=== PATIENT | male | born 1975 | race Two or more races ===

== ENCOUNTER 2023-06-19 13:07 | Inpatient (IN) | payer MEDICARE, OTHER ==
[~2023-06-19] VITALS: Ht 182.9 cm; Wt 93.2 kg
[2023-06-19] MEDS ORDERED: SPIR-37 PO (14:30)
[2023-06-19] MEDS ORDERED: EMPA25TA3 PO (14:30)
[2023-06-19] MEDS ORDERED: GABA-1181 PO (14:30)
[2023-06-19] MEDS ORDERED: NORT25 PO (14:30)
[2023-06-19] MEDS ORDERED: ALLO-97 PO (14:30)
[2023-06-19] MEDS ORDERED: COLC0.6C PO (14:30)
[2023-06-19] MEDS ORDERED: ASPI-1450 PO (14:30)
[2023-06-19] MEDS ORDERED: ALLO-45 PO (14:30)
[2023-06-19] MEDS ORDERED: GABA-1216 PO (14:30)
[2023-06-19] MEDS ORDERED: ICOS1CAP PO (14:30)
[2023-06-19] MEDS ORDERED: POTA-92 PO (14:40)
[2023-06-19] MEDS ORDERED: DULO-113 PO (14:40)
[2023-06-19] MEDS ORDERED: FURO80 PO (14:40)
[2023-06-19] MEDS ORDERED: ATOR40TA28 PO (14:40)
[2023-06-19] MEDS ORDERED: LEVO75 PO (14:40)
[2023-06-19] MEDS ORDERED: TIMO5DRO21 OU (14:40)
[2023-06-19] MEDS ORDERED: METF-1211 PO (14:40)
[2023-06-19 14:47] LABS: COVID AG,FIA SOURCE NASAL SWAB
[2023-06-19 15:22] LABS: SARS-COV2 (COVID) ANTIGEN,FIA Negative (Negative)
[2023-06-19] MEDS ORDERED: INSULIN REGULAR, HUMAN 100 UNITS/ML SQ ONE (16:30)
[2023-06-19] MEDS ORDERED: HydrOXYzine PAMOATE 50 MG CAPSULE PO ONE (16:30)
[2023-06-19] MEDS ORDERED: CARV25TA32 PO (16:37)
[2023-06-19] MEDS ORDERED: SACU1TAB PO (16:37)
[2023-06-19] MEDS ORDERED: ALLO300T2 PO (16:37)
[2023-06-19] MEDS ORDERED: LEVO150 PO (16:37)
[2023-06-19] MEDS ORDERED: FURO80TA3 PO (16:37)
[2023-06-19] MEDS ORDERED: DULA4.5P SQ (16:37)
[2023-06-19 16:54] LABS: BASOPHILS % (AUTO) 0.6 % (0.0-2.0); EOSINOPHILS % (AUTO) 0.9 % (1.0-6.0); HEMATOCRIT 54.7 % (41-53); HEMOGLOBIN 17.8 g/dL (13.5-17.5); LYMPHOCYTES # (AUTO) 1.5 K/uL (1.0-4.8); LYMPHOCYTES % (AUTO) 16.8 % (22.0-44.0); MEAN CORPUSCULAR HEMOGLOBIN 31.8 pg (26.0-34.0); MEAN CORPUSCULAR HGB CONC 32.6 G/dL (31.0-37.0); MEAN CORPUSCULAR VOLUME 98 fL (80-100); MONOCYTES # (AUTO) 0.8 K/uL (0.1-1.0); MONOCYTES % (AUTO) 8.7 % (2.0-9.0); NEUTROPHILS # (AUTO) 6.4 K/uL (1.8-7.7); PLATELET COUNT (AUTO) 214 K/uL (150-450); RED BLOOD CELL COUNT(AUTO) 5.61 MIL/uL (4.50-5.90); RED CELL DISTRIBUTION WIDTH 14.2 % (11.5-14.5); WHITE BLOOD COUNT (AUTO) 8.8 K/uL (4.5-11.0)
[2023-06-19 17:01] LABS: ANION GAP 12 mmol/L (8-16); CARBON DIOXIDE 30 mmol/L (22-29); CHLORIDE 99 mmol/L (98-107); CREATININE 1.37 mg/dL (0.60-1.30); GLOMERULAR FILTR. RATE CALC 55 mL/min (>60); GLUCOSE,RANDOM 272 mg/dL (70-110); POTASSIUM 4.5 mmol/L (3.5-5.1); SODIUM SERUM 141 mmol/L (136-145); UREA NITROGEN, BLOOD 25 mg/dL (7-18)
[2023-06-19 17:04] LABS: TROPONIN I-HIGH SENSITIVITY 14 ng/L (<76)
[2023-06-19 17:15] LABS: ALANINE AMINOTRANSFERASE 89 U/L (12-78); ALBUMIN 4.6 g/dL (3.4-5.0); ALKALINE PHOSPHATASE 208 U/L (46-116); ASPARTATE AMINOTRANSFERASE 51 U/L (15-37); BILIRUBIN,TOTAL 0.9 mg/dL (0.1-1.0); LIPASE 99 U/L (16-77); TOTAL PROTEIN, SERUM 8.5 g/dL (6.4-8.2)
[2023-06-19 17:40] LABS: ALCOHOL, BLOOD (SERUM) < 3 mg/dL (0-10)
[2023-06-19 17:53] LABS: APPEARANCE,URINE CLEAR (CLEAR); BILIRUBIN,URINE NEGATIVE (NEGATIVE); COLOR,URINE COLORLESS (YELLOW); GLUCOSE, URINE (UA) >=1000 mg/dL (NEGATIVE); KETONES,URINE NEGATIVE (NEGATIVE); LEUKOCYTE ESTERASE ,URINE NEGATIVE (NEGATIVE); NITRATE,URINE NEGATIVE (NEGATIVE); OCCULT BLOOD,URINE NEGATIVE (NEGATIVE); PROTEIN,URINE NEGATIVE (NEGATIVE); SPECIFIC GRAVITIY, URINE 1.009 (1.003-1.030); UROBILINOGEN,URINE <=1.0 mg/dL (<=1.0)
[2023-06-19 17:58] LABS: ALCOHOL, URINE DRUG SCREEN NEGATIVE (NEGATIVE); AMPHET/METH SCREEN,URINE NEGATIVE (NEGATIVE); BARBITURATE SCREEN, URINE NEGATIVE (NEGATIVE); BENZODIAZEPINES SCREEN,URINE NEGATIVE (NEGATIVE); CANNABINOID SCREEN,URINE POSITIVE (NEGATIVE); COCAINE SCREEN,URINE NEGATIVE (NEGATIVE); METHADONE SCREEN, URINE NEGATIVE (NEGATIVE); OPIATE SCREEN,URINE NEGATIVE (NEGATIVE); PHENCYCLIDINE SCREEN,URINE NEGATIVE (NEGATIVE)
[2023-06-19 18:04] LABS: ACETONE,BLOOD NEGATIVE (NEGATIVE)
[2023-06-19 18:06] LABS: BACTERIA,URINE None Seen /HPF (None Seen); RBC,URINE None Seen /HPF (0-2); WBC,URINE None Seen /HPF (0-5)
[2023-06-19] MEDS ORDERED: HALOPERIDOL 5 MG TABLET PO PRN (18:30)
[2023-06-19] MEDS: ZOLPIDEM TARTRATE 10 MG TABLET PO PRN (21:15)
[2023-06-20] MEDS ORDERED: PNEUMOCOCCAL VACCINE POLYVALENT 0.5 ML SYRINGE [PPSV23] IM. ONE (01:15)
[2023-06-20] MEDS: LORazepam 2 MG TABLET PO PRN ×3 (03:20→21:02)
[2023-06-20] MEDS ORDERED: GLUCAGON,HUMAN RECOMBINANT 1 MG VIAL IM PRN (06:15)
[2023-06-20] MEDS ORDERED: LEVOTHYROXINE SODIUM 25 MCG TABLET PO SCH (06:30)
[2023-06-20 06:36] LABS: GLUCOMETER DEV NAME(LOC) BV2S.; GLUCOSE,POINT OF CARE 173 MG/DL (70-110)
[2023-06-20] MEDS ORDERED: SUMAtriptan SUCCINATE 25 MG TABLET PO PRN (06:45)
[2023-06-20] MEDS: INSULIN LISPRO 100 UNITS/ML SQ PRN ×4 (06:52→21:14)
[2023-06-20] MEDS: GABAPENTIN 300 MG CAPSULE PO SCH (10:04)
[2023-06-20] MEDS: SPIRONOLACTONE 25 MG TABLET PO SCH (10:04)
[2023-06-20] MEDS: FUROSEMIDE 80 MG TABLET PO SCH ×2 (10:05→16:49)
[2023-06-20] MEDS: ALLOPURINOL 300 MG TABLET PO SCH (10:05)
[2023-06-20] MEDS: TIMOLOL MALEATE 0.5% 5 ML OPHTHALMIC SOLUTION OU SCH (10:07)
[2023-06-20] MEDS: ATORVASTATIN CALCIUM 40 MG TABLET PO SCH (10:23)
[2023-06-20] MEDS: POTASSIUM CHLORIDE 10 MEQ ER TABLET PO SCH (10:23)
[2023-06-20] MEDS: BACITRACIN 28 GM OINTMENT TP SCH ×2 (10:34→16:49)
[2023-06-20 11:41] LABS: GLUCOMETER DEV NAME(LOC) BV2X.2; GLUCOSE,POINT OF CARE 254 MG/DL (70-110)
[2023-06-20 16:51] LABS: GLUCOMETER DEV NAME(LOC) BV2S.; GLUCOSE,POINT OF CARE 208 MG/DL (70-110)
[2023-06-20 20:22] VITALS: BP 129/81; PULSE 95; RESP 18; TEMP 98.2; O2SAT 97
[2023-06-20 21:16] LABS: GLUCOMETER DEV NAME(LOC) BV2S.; GLUCOSE,POINT OF CARE 280 MG/DL (70-110)
[2023-06-21 00:02] VITALS: RESP 18; TEMP 97.9
[2023-06-21] MEDS: LEVOTHYROXINE SODIUM 75 MCG TABLET PO SCH (07:08)
[2023-06-21 07:16] LABS: GLUCOMETER DEV NAME(LOC) BV2S.; GLUCOSE,POINT OF CARE 223 MG/DL (70-110)
[2023-06-21] MEDS: INSULIN LISPRO 100 UNITS/ML SQ PRN ×4 (07:20→20:52)
[2023-06-21 08:32] VITALS: BP 116/87; PULSE 72; RESP 17; TEMP 97.6; O2SAT 97
[2023-06-21 09:00] VITALS: BP 118/78; PULSE 76; RESP 18; TEMP 98; O2SAT 99
[2023-06-21] MEDS: LORazepam 2 MG TABLET PO PRN ×2 (09:30→20:56)
[2023-06-21] MEDS: ALLOPURINOL 300 MG TABLET PO SCH (09:30)
[2023-06-21] MEDS: TIMOLOL MALEATE 0.5% 5 ML OPHTHALMIC SOLUTION OU SCH (09:30)
[2023-06-21] MEDS: SPIRONOLACTONE 25 MG TABLET PO SCH (09:30)
[2023-06-21] MEDS: POTASSIUM CHLORIDE 10 MEQ ER TABLET PO SCH (09:30)
[2023-06-21] MEDS: FUROSEMIDE 80 MG TABLET PO SCH ×2 (09:30→17:00)
[2023-06-21] MEDS: ATORVASTATIN CALCIUM 40 MG TABLET PO SCH (09:30)
[2023-06-21] MEDS: GABAPENTIN 300 MG CAPSULE PO SCH (09:30)
[2023-06-21] MEDS: BACITRACIN 28 GM OINTMENT TP SCH ×2 (09:30→17:00)
[2023-06-21 11:41] LABS: GLUCOMETER DEV NAME(LOC) BV2X.2; GLUCOSE,POINT OF CARE 285 MG/DL (70-110)
[2023-06-21 17:01] LABS: GLUCOMETER DEV NAME(LOC) BV2X.2; GLUCOSE,POINT OF CARE 374 MG/DL (70-110)
[2023-06-21 20:46] LABS: GLUCOMETER DEV NAME(LOC) BV2X.2; GLUCOSE,POINT OF CARE 331 MG/DL (70-110)
[2023-06-21] MEDS: ZOLPIDEM TARTRATE 10 MG TABLET PO PRN (20:56)
[2023-06-21 21:21] VITALS: BP 133/89; PULSE 88; RESP 18; TEMP 97.7; O2SAT 99
[2023-06-22 06:26] LABS: GLUCOMETER DEV NAME(LOC) BV2X.2; GLUCOSE,POINT OF CARE 194 MG/DL (70-110)
[2023-06-22] MEDS: LEVOTHYROXINE SODIUM 75 MCG TABLET PO SCH (06:47)
[2023-06-22] MEDS: INSULIN LISPRO 100 UNITS/ML SQ PRN ×4 (06:48→20:43)
[2023-06-22 08:43] VITALS: BP 102/61; PULSE 82; RESP 18; TEMP 98; O2SAT 98
[2023-06-22 09:01] VITALS: BP 135/90; RESP 17; O2SAT 98
[2023-06-22] MEDS: ATORVASTATIN CALCIUM 40 MG TABLET PO SCH (09:03)
[2023-06-22] MEDS: TIMOLOL MALEATE 0.5% 5 ML OPHTHALMIC SOLUTION OU SCH (09:04)
[2023-06-22] MEDS: FUROSEMIDE 80 MG TABLET PO SCH ×2 (09:04→16:12)
[2023-06-22] MEDS: ALLOPURINOL 300 MG TABLET PO SCH (09:04)
[2023-06-22] MEDS: LORazepam 2 MG TABLET PO PRN ×2 (09:04→16:12)
[2023-06-22] MEDS: GABAPENTIN 300 MG CAPSULE PO SCH (09:04)
[2023-06-22] MEDS: SPIRONOLACTONE 25 MG TABLET PO SCH (09:04)
[2023-06-22] MEDS: POTASSIUM CHLORIDE 10 MEQ ER TABLET PO SCH (09:04)
[2023-06-22] MEDS: BACITRACIN 28 GM OINTMENT TP SCH ×2 (09:06→16:13)
[2023-06-22 11:30] LABS: GLUCOMETER DEV NAME(LOC) BV2X.2; GLUCOSE,POINT OF CARE 360 MG/DL (70-110)
[2023-06-22 16:10] VITALS: BP 145/85; PULSE 90; RESP 17
[2023-06-22] MEDS: CARVEDILOL 3.125 MG TABLET PO SCH (16:51)
[2023-06-22 17:00] LABS: GLUCOMETER DEV NAME(LOC) BV2X.2; GLUCOSE,POINT OF CARE 358 MG/DL (70-110)
[2023-06-22 20:31] LABS: GLUCOMETER DEV NAME(LOC) BV2X.2; GLUCOSE,POINT OF CARE 325 MG/DL (70-110)
[2023-06-22] MEDS: ASPIRIN 81 MG CHEWABLE TABLET PO SCH (20:32)
[2023-06-22] MEDS: ZOLPIDEM TARTRATE 10 MG TABLET PO PRN (20:39)
[2023-06-22 20:43] VITALS: BP 120/74; PULSE 79; RESP 18; TEMP 98; O2SAT 96
[2023-06-22] MEDS ORDERED: NORTRIPTYLINE HCL 25 MG CAPSULE PO SCH (21:00)
[2023-06-22] MEDS: SACUBITRIL/VALSARTAN 24-26 MG TABLET PO SCH (21:17)
[2023-06-22] MEDS: EMPAGLIFLOZIN 25 MG TABLET PO SCH (21:17)
[2023-06-23 06:21] LABS: GLUCOMETER DEV NAME(LOC) BV2X.2; GLUCOSE,POINT OF CARE 228 MG/DL (70-110)
[2023-06-23] MEDS: LEVOTHYROXINE SODIUM 75 MCG TABLET PO SCH (06:53)
[2023-06-23] MEDS: INSULIN LISPRO 100 UNITS/ML SQ PRN (06:54)
[2023-06-23] MEDS ORDERED: MetFORMIN HCL 500 MG TABLET PO SCH (07:00)
[2023-06-23] MEDS ORDERED: *NON-FORMULARY MED [ENTER DRUG, DOSE, FREQ IN COMMENTS] CLINICAL ONE (07:45)
[2023-06-23 08:09] VITALS: BP 114/72; PULSE 90; RESP 16; TEMP 97.4; O2SAT 98
[2023-06-23] MEDS: SPIRONOLACTONE 25 MG TABLET PO SCH (08:16)
[2023-06-23] MEDS: EMPAGLIFLOZIN 25 MG TABLET PO SCH (08:16)
[2023-06-23] MEDS: ALLOPURINOL 300 MG TABLET PO SCH (08:16)
[2023-06-23] MEDS: ASPIRIN 81 MG CHEWABLE TABLET PO SCH (08:16)
[2023-06-23] MEDS: GABAPENTIN 300 MG CAPSULE PO SCH (08:16)
[2023-06-23] MEDS: ATORVASTATIN CALCIUM 40 MG TABLET PO SCH (08:16)
[2023-06-23] MEDS: SACUBITRIL/VALSARTAN 24-26 MG TABLET PO SCH (08:16)
[2023-06-23] MEDS: POTASSIUM CHLORIDE 10 MEQ ER TABLET PO SCH (08:16)
[2023-06-23] MEDS: BACITRACIN 28 GM OINTMENT TP SCH (08:17)
[2023-06-23] MEDS: TIMOLOL MALEATE 0.5% 5 ML OPHTHALMIC SOLUTION OU SCH (08:17)
[2023-06-23] MEDS: FUROSEMIDE 80 MG TABLET PO SCH (08:17)
[2023-06-23] MEDS: CARVEDILOL 3.125 MG TABLET PO SCH (08:18)
[2023-06-23] MEDS ORDERED: DULoxetine HCL 60 MG CAPSULE PO SCH (09:00)
[2023-06-23] MEDS ORDERED: BusPIRone HCL 10 MG TABLET PO SCH ×2 (11:00→21:00)
[2023-06-23] MEDS ORDERED: INSULIN LISPRO 100 UNITS/ML SQ ONE (11:15)
[2023-06-23 11:31] LABS: GLUCOMETER DEV NAME(LOC) BV2X.2; GLUCOSE,POINT OF CARE 437 MG/DL (70-110)
[2023-06-23] MEDS ORDERED: BUSP10TA23 PO ×2 (11:58)
[2023-06-23] MEDS ORDERED: DULO-113 PO (11:58)
[2023-06-23] MEDS ORDERED: GABA-1181 PO (11:58)
[2023-06-23] MEDS ORDERED: NORT25 PO (11:58)
[2023-06-23 13:26] LABS: GLUCOMETER DEV NAME(LOC) BV2X.2; GLUCOSE,POINT OF CARE 280 MG/DL (70-110)
[2023-06-23] MEDS ORDERED: COLCHICINE 0.6 MG PO SCH (15:00)
== END 2023-06-23 16:10 | disposition home or self-care (01) | DRG 885 ==
LOC: EMS 13:20 → B2S 22:30 → B2X 06-21 11:03
PROVIDERS: ADMIT Psychiatry & Neurology Child & Adolescent Psychiatry; ATTEND Psychiatry & Neurology Child & Adolescent Psychiatry
DX: F33.3 Major depressive disorder, recurrent, severe with psychotic symptoms (principal); I11.0 Hypertensive heart disease with heart failure; E11.65 Type 2 diabetes mellitus with hyperglycemia; R45.851 Suicidal ideations; R79.89 Other specified abnormal findings of blood chemistry; E03.9 Hypothyroidism, unspecified; F12.90 Cannabis use, unspecified, uncomplicated; R32 Unspecified urinary incontinence; E78.00 Pure hypercholesterolemia, unspecified; I50.9 Heart failure, unspecified; M10.9 Gout, unspecified; Z20.822 Contact with and (suspected) exposure to COVID-19; Z95.810 Presence of automatic (implantable) cardiac defibrillator; Z79.899 Other long term (current) drug therapy
CPT/HCPCS: 76700; 80053; 80307; 81001; 82009; 82962; 83690; 84484; 85025; 99285; G0480; J1815; Q9967